=== PATIENT | male | born 1975 | race Caucasian/White ===

== ENCOUNTER 2016-03-11 11:59 | Emergency (ER) | payer OTHER | END 2016-03-11 12:59 | disposition home or self-care (01) | LOC: ED 11:59 | DX: S81.012A Laceration without foreign body, left knee, initial encounter (principal); W45.8XXA Other foreign body or object entering through skin, initial encounter; W22.8XXA Striking against or struck by other objects, initial encounter; Y93.H3 Activity, building and construction; Y92.008 Other place in unspecified non-institutional (private) residence as the place of occurrence of the external cause; Y99.0 Civilian activity done for income or pay ==